=== PATIENT | male | born 1975 | race Two or more races ===

== ENCOUNTER 2020-11-27 23:27 | Emergency (ER) | payer OTHER ==
[~2020-11-27] VITALS: Ht 182.9 cm; Wt 70.0 kg
[2020-11-27 23:43] VITALS: BP 142/84
== END 2020-11-28 04:31 | disposition home or self-care (01) ==
LOC: ER 23:27
DX: L97.329 Non-pressure chronic ulcer of left ankle with unspecified severity (principal); I83.892 Varicose veins of left lower extremity with other complications
CPT/HCPCS: 99281